=== PATIENT | male | born 1990 ===

== ENCOUNTER 2025-02-06 19:31 | Emergency (ER) | payer SELFPAY ==
[2025-02-06 19:37] VITALS: BP 158/71; PULSE 98; RESP 18; TEMP 36.9; O2SAT 96
[2025-02-06 19:40] VITALS: BMI 27.4
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
== END 2025-02-06 20:11 ==
LOC: SERX 21:13
PROVIDERS: Emergency Provider Emergency Medicine
DX: Z02.89 Encounter for other administrative examinations (principal); Z04.1 Encounter for examination and observation following transport accident
CPT/HCPCS: 99282